=== PATIENT | female | born 2000 | race Asian ===

== ENCOUNTER 2023-09-16 21:48 | Emergency (ER) | payer OTHER, SELFPAY ==
[2023-09-16 21:50] VITALS: BP 108/75
--- NOTE | 2023-09-16 22:33 | ED.MUSCINJ ---
HPI-Injury
General
Chief Complaint: Musculo-Skeletal Complaint
Source: patient
Exam Limitations: none
Time Seen by Provider: 09/16/23 22:21
Nursing documentation reviewed up to this point in time: agreed with
History of Present Illness-Injury
Is this injury a work related problem?: No
Is pt an associate of [facility]?: No
Initial Injury comments:
Rolled ankle while gardening COmplains of pain to right lat ankle. Injury occurred today.
Past History
Past History
ED Past Medical History: None
ED Past Surgical History: None
Social History
Tobacco: Non-smoker
Alcohol: None
Drug: None
Personal: Other (engaged)
Living: with family
Review of Systems
Review of Systems
Allergies reviewed?: Yes
All Other Systems: ROS reviewed and negative except as documented in HPI and ROS
Constitutional: Reports no symptoms
Musculoskeletal: Reports joint pain (pain to right lat ankle)
Skin: Reports no symptoms
Neurological: Reports no symptoms
Psychiatric: Reports no symptoms
Musculoskeletal Injury Exam
Musculoskeletal Injury Exam
Right Lateral Ankle:
Pain with Movement?: Moderate
Tender to palpation?: Moderate
Soft tissue swelling?: Mild
External deformity and angulation?: None
Joint effusion?: None
Contusion?: None
Strain- Sprain- Tear (Connective tissue injury)?: Moderate
Crepitus with movement?: No
Joint instability?: No
Malalignment/deformity?: No
Range of motion: Limited
Distal skin color and temperature: normal-warm & good color
Capillary Refill: normal
Normal distal neurovascular exam?: Yes
Peripheral Pulses: posterior tibial (right): 3+ and dorsalis pedis (right): 3+
Phy Exam
General Physical Exam
General Presentation: well appearing and no apparent distress
General age: appears stated age
General Skin: warm and dry
General Habitus: normal
General Mental: alert
Musculoskeletal Exam
Musculoskeletal Exam: neuro vasc intact and other (Achilles intact. No tenderness base pf 5th, proximal tib/fib)
Skin Exam
Skin Exam: normal color, warm/dry and no rash
Psychiatric Exam
Psychiatric Exam: normal mood/affect
Injury Course
Orders/Labs/Results
Orders:
Orders
09/16/23 21:53
Ankle, Right 3 view CR [CR Ankle - Right Min 3 Views *] Urgent
Comment:
Reason For Exam: right ankle injury, pain and swelling
09/16/23 22:28
Ortho Boot Right- Treatment ONCE
Short or tall?: Tall
*Critical Care Note
Total Time (30-74mins, 75-104mins- exclusive of procedures): Not Applicable
ED Attending Note
-
Portions of this chart may have been created with voice recognition software.� Occasional wrong word or��sound alike� substitutions may have occurred due to the inherent limitations of voice recognition software.
Discharge Plan
Departure
Patient Disposition: Home (Routine Discharge)
Date of Disposition: 09/16/23
Time of Disposition: 22:31
Patient with high blood pressure during this ER visit?: No
Condition: Good
Covid-19: Not Applicable
Discharge Problem:
Ankle sprain
Instructions: Ibuprofen, Using Cold for Pain, Ankle Sprain ED
Prescriptions:
No Action
bupropion HCl 300 mg Tablet Extended Release 24 Hr
300 mg PO DAILY
zinc 50 mg Capsule
50 mg PO DAILY
Referrals:
Lawrence Gómez MD [Active] - (Follow up if your symptoms do not improve over the next week)
Discharge Date and Time
Print Language: NEPALI
== END 2023-09-16 23:18 | disposition home or self-care (01) ==
LOC: EMR 21:48
PROVIDERS: EMERGENCY PHYSICIAN Emergency Medicine; FAMILY PHYSICIAN Internal Medicine
DX: S93.401A Sprain of unspecified ligament of right ankle, initial encounter (principal); X58.XXXA Exposure to other specified factors, initial encounter
CPT/HCPCS: 99283; 73610

== ENCOUNTER 2023-12-11 18:57 | Emergency (ER) | payer OTHER, SELFPAY ==
[2023-12-11 18:59] VITALS: BP 128/71
--- NOTE | 2023-12-11 19:38 | ED.GENMED ---
History of Present Illness
General
Chief Complaint: Abdominal Symptoms
Source: patient
Exam Limitations: none
Time Seen by Provider: 12/11/23 19:25
History of Present Illness
History of Present Illness:
23-year-old female with relatively sudden onset of upper abdominal pain nausea vomiting and diarrhea. Started early this afternoon. No precipitating event. No other unusual food ingestion. No travel history. No one else is ill at home. She
does have a history of ulcerative colitis diagnosed 2 years ago. However she is on no chronic medication for this. She has had no issues between then and now. Mostly complaining of nausea but some of upper abdominal pain. No blood or mucus in
the stool
Past History
Past History
ED Past Medical History: Other (Ulcerative colitis)
ED Past Surgical History: None and Other (Septoplasty. Right eye surgery)
Social History
Tobacco: Non-smoker
Alcohol: None
Drug: None
Personal: Other (engaged)
Living: with family
Review of Systems
Review of Systems
All Other Systems: Not applicable
Constitutional: Denies fever or chills
ABD/GI: Denies bloody stools or black stools
: Reports no symptoms
Phy Exam
Physical Exam
Physical Exam:
GENERAL: Alert and oriented in no apparent distress
EYE: Orbits normal.
NECK: Supple
CARDIAC: Borderline tachycardia
LUNGS: Clear breath sounds,normal
ABDOMEN: Soft, mild epigastric tenderness. No rebound or guarding no mass or hernia
NEUROLOGICAL: Alert and oriented , grossly non-focal
SKIN: Warm and dry, no rash or lesion, no discoloration, skin intact.
MUSCULOSKELETAL: No edema,no deformity.Good color
PSYCH: Normal and appropriate interaction.
Course
Orders/Labs/Results
Orders:
Orders
12/11/23 19:37
IV Insert/Care/Rem.- Treatment PRN
0.9% Sodium Chloride 1000 ml [Nss] 1,000 ml IV BOLUS
Ondansetron Injectable [Zofran] 4 mg IV NOW STA
Pantoprazole [Protonix IV] 40 mg IV NOW STA
Test Result ONCE
US Abdomen Complete/Upper Urgent
Comment:
Reason For Exam: Upper abdominal pain/diarrhea
12/11/23 20:01
Complete Blood Count/With Diff Urgent
Comprehensive Metabolic Panel Urgent
HCG, Serum Qualitative Screen Urgent
Lipase Urgent
12/11/23 20:49
STOOL [C difficile Antigen & Toxins] Urgent
TRACEY Source: Feces/Stool
Specimen Description:
Date Specimen was Collected: 12/11/23
Time Specimen was Collected: 20:47
Stool Culture Urgent
TRACEY Source: Feces/Stool
Specimen Description:
Date Specimen was Collected: 12/11/23
Time Specimen was Collected: 20:47
Abnormal Lab Results
12/11/23
20:01
WBC 11.9 H 10^3/uL
(4.8-10.8)
Absolute Neuts (auto) 9.7 H 10^3/uL
(1.4-6.5)
Absolute Monos (auto) 0.7 H 10^3/uL
(0.1-0.6)
Neutrophils % 81.7 H %
(42.2-75.2)
Lymphocytes % 10.4 L %
(20.5-51.1)
12/11/23 20:01
12/11/23 20:01
Vital Signs
Initial and Last Documented VS:
Initial Vital Signs
Temp Pulse Resp BP Pulse Ox
98.1 F 115 18 128/71 97
12/11/23 18:59 12/11/23 18:59 12/11/23 18:59 12/11/23 18:59 12/11/23 18:59
Last Documented Vital Signs
Temp Pulse Resp BP Pulse Ox
98.1 F 115 18 128/71 97
12/11/23 18:59 12/11/23 18:59 12/11/23 18:59 12/11/23 18:59 12/11/23 18:59
MDM/Problems Addressed
Differential Diagnosis Includes:
Patient describing mostly colitis like symptoms. Relatively sudden onset. Differential would include infectious colitis or ulcerative colitis. Also consider biliary colic/gastroenteritis/viral syndrome
*Radiology
Radiology exam reviewed: radiology read reviewed (Fatty liver)
*Pulse Oximetry
Patient hypoxic: no
*Critical Care Note
Total Time (30-74mins, 75-104mins- exclusive of procedures): Not Applicable
Update Note
Update Note:
Patient tolerated p.o. well. Discussed approach at length. Discussed and offered CT although clinically does not have a surgical abdomen. Clinically appears very comfortable. Symptoms are all upper abdomen. Most consistent with a
gastroenteritis or colitis. Patient is comfortable with watching closely as an outpatient.
ED Attending Note
-
Portions of this chart may have been created with voice recognition software.� Occasional wrong word or��sound alike� substitutions may have occurred due to the inherent limitations of voice recognition software.
Discharge Plan
Departure
Patient Disposition: Home (Routine Discharge)
Date of Disposition: 12/11/23
Time of Disposition: 22:06
Patient with high blood pressure during this ER visit?: Yes
Discharge Problem:
Colitis/gastroenteritis
Instructions: Nausea and Vomiting, Adult (DC), Colitis (DC), Diarrhea, Adult ED, Abdominal Pain, BLOOD PRESSURE
Prescriptions:
New
ondansetron 4 mg tablet,disintegrating
4 mg PO TID PRN (Reason: nausea and vomiting) 5 Days Qty: 10 0RF
No Action
bupropion HCl 300 mg Tablet Extended Release 24 Hr
300 mg PO DAILY
zinc 50 mg Capsule
50 mg PO DAILY
Referrals:
Joseluis Velasquez MD [Family Provider] - Follow up in 2-3 days
Activity Restrictions/Additional Instructions:
Your prescription was sent to your pharmacy
Stay well-hydrated
The stool culture should be back in 2 to 3 days
As we discussed, get rechecked if symptoms have not resolved in the next few days or sooner if symptoms progress
Interventions
Interventions:
*Risk Screen - Suicide Last Done: 12/11/23 19:03
*General Assessment Last Done: 12/11/23 18:59
*Neglect/Abuse Screening Last Done: 12/11/23 18:59
ED- Fall Risk Assessment Last Done: 12/11/23 18:59
*ED COVID-19 Vaccine History Last Done: 12/11/23 19:04
Discharge Date and Time
Print Language: NIGERIAN
[2023-12-11] MEDS: PROTONIX IV 40 MG IV (20:02)
[2023-12-11] MEDS: ZOFRAN 4 MG IV (20:02)
[2023-12-11] MEDS: NSS 1000 IV (20:02)
[2023-12-11 20:18] LABS: % Basophils 0.2 % (0-2); % Eosinophils 1.3 % (0-6); % Immature Granulocytes 0.3 % (0-0.5); % Lymphocytes 10.4 % (20.5-51.1); % Monocytes 6.1 % (1.7-9.3); % Neutrophils 81.7 % (42.2-75.2); Absolute Eosinophils 0.2 10^3/uL (0-0.7); Absolute Lymphocytes 1.2 10^3/uL (1.2-3.4); Absolute Monocytes 0.7 10^3/uL (0.1-0.6); Absolute Neutrophils 9.7 10^3/uL (1.4-6.5); Hematocrit 41.1 % (37.0-47.0); Hemoglobin 14.4 g/dL (12.0-16.0); Mean Corpuscular Hgb 28.5 pg (27.0-31.0); Mean Corpuscular Volume 81.2 fL (81.0-99.0); Mean Platelet Volume 9.6 fL (7.4-10.4); Nucleated Red Blood Cells % 0 %; Platelet Count 306 10^3/uL (130-400); Red Blood Cell Count 5.06 10^6/uL (4.20-5.40); Red Cell Dist. Width 12.7 % (11.5-14.5); White Blood Cell Count 11.9 10^3/uL (4.8-10.8)
[2023-12-11 20:32] LABS: HCG, Serum Qualitative Screen Negative
[2023-12-11 20:35] LABS: ALT (SGPT) 16 U/L (0-35); AST (SGOT) 21 U/L (14-36); Albumin 4.9 g/dl (3.5-5.0); Alkaline Phosphatase 57 U/L (38-126); Blood Urea Nitrogen 15 mg/dl (7-17); Calcium 9.6 mg/dl (8.4-10.2); Carbon Dioxide 23 mmol/L (22-30); Chloride 101 mmol/L (98-107); Glucose 88 mg/dl (70-99); Lipase 81 U/L (23-300); Potassium 4.5 mmol/L (3.5-5.1); Sodium 138 mmol/L (135-145); Total Bilirubin 0.5 mg/dl (0.2-1.3); Total Protein 7.7 g/dl (6.3-8.2); eGFR > 60.00
[2023-12-11 22:33] VITALS: BP 126/78
== END 2023-12-11 22:37 | disposition home or self-care (01) ==
LOC: EMR 18:57
PROVIDERS: EMERGENCY PHYSICIAN Emergency Medicine; FAMILY PHYSICIAN Internal Medicine
DX: K52.9 Noninfective gastroenteritis and colitis, unspecified (principal); Z87.19 Personal history of other diseases of the digestive system
CPT/HCPCS: 99284; 96374; 96375; 96361; 76700; 80053; 83690; 84703; 85025; 87045; 87046; 87324; 87427; 87449

== ENCOUNTER 2024-01-28 04:14 | Emergency (ER) | payer OTHER, SELFPAY ==
[2024-01-28 04:19] VITALS: BP 107/57
[2024-01-28 05:20] LABS: % Basophils 0.1 % (0-2); % Eosinophils 2.4 % (0-6); % Immature Granulocytes 0.2 % (0-0.5); % Monocytes 7.7 % (1.7-9.3); % Neutrophils 72.6 % (42.2-75.2); Absolute Eosinophils 0.2 10^3/uL (0-0.7); Absolute Lymphocytes 1.4 10^3/uL (1.2-3.4); Absolute Monocytes 0.7 10^3/uL (0.1-0.6); Absolute Neutrophils 6.1 10^3/uL (1.4-6.5); Hematocrit 35.4 % (37.0-47.0); Hemoglobin 12.6 g/dL (12.0-16.0); Mean Corp Hgb Conc. 35.6 g/dL (33.0-37.0); Mean Corpuscular Hgb 29.9 pg (27.0-31.0); Mean Corpuscular Volume 83.9 fL (81.0-99.0); Nucleated Red Blood Cells % 0 %; Platelet Count 296 10^3/uL (130-400); Red Blood Cell Count 4.22 10^6/uL (4.20-5.40); Red Cell Dist. Width 11.9 % (11.5-14.5); White Blood Cell Count 8.4 10^3/uL (4.8-10.8)
[2024-01-28 05:39] LABS: HCG, Serum Qualitative Screen Negative
[2024-01-28 05:46] VITALS: BP 111/94
[2024-01-28 05:47] LABS: ALT (SGPT) 16 U/L (0-35); AST (SGOT) 23 U/L (14-36); Albumin 4.5 g/dl (3.5-5.0); Alkaline Phosphatase 54 U/L (38-126); Blood Urea Nitrogen 15 mg/dl (7-17); Calcium 9.4 mg/dl (8.4-10.2); Carbon Dioxide 22 mmol/L (22-30); Chloride 103 mmol/L (98-107); Glucose 104 mg/dl (70-99); Lipase 74 U/L (23-300); Potassium 3.6 mmol/L (3.5-5.1); Sodium 137 mmol/L (135-145); Total Bilirubin 0.9 mg/dl (0.2-1.3); Total Protein 7.3 g/dl (6.3-8.2); eGFR > 60.00
[2024-01-28 06:01] VITALS: BP 119/73
[2024-01-28] MEDS: ZOFRAN 4 MG IV (06:08)
--- NOTE | 2024-01-28 06:56 | ED.GENMED ---
History of Present Illness
<Renetta Martinez MD, Resident - Last Filed: 01/28/24 11:09>
General
Chief Complaint: Abdominal Symptoms
Time Seen by Provider: 01/28/24 06:15
History of Present Illness
History of Present Illness:
23 y/o female with no significant pmhx presenting to the ED with nausea, vomiting, and diarrhea since yesterday. Pt notes her symptoms started around 5pm yesterday without any precipitating events. Pt notes abdominal pain predominantly in the lower
abdominal area (left greater than right). Pt has had 6 episodes of non-bloody vomiting and ~11 loose watery bowel movements in the past 24 hrs. Notes bright red blood mixed with her stools which is new. Pt has had several episodes of similar
symptoms since 2022. Notes prior hospitalization in 2022 for which she underwent colonoscopy and was diagnosed with 'acute colitis'. Pt takes no medications other than Wevogy for weight loss which was upped this past to 1 mg. Denies fever,
chills. Pt states her fiance is having flulike symptoms at home. No recent travel. No recent antibiotic use. Was seen here for similar symptoms in November 2023.
Past History
<Renetta Martinez MD, Resident - Last Filed: 01/28/24 11:09>
Past History
ED Past Medical History: Other (Colitis)
ED Past Surgical History: None and Other (Septoplasty. Right eye surgery)
Social History
Tobacco: Non-smoker
Alcohol: None
Drug: None
Personal: Other (engaged)
Living: with family
Review of Systems
<Renetta Martinez MD, Resident - Last Filed: 01/28/24 11:09>
Review of Systems
Constitutional: Reports fatigue
EENT: Reports no symptoms
Respiratory: Reports cough
Cardiac: Reports no symptoms
ABD/GI: Reports abdominal pain, nausea, vomiting, diarrhea and bloody stools
: Reports no symptoms
Musculoskeletal: Reports no symptoms
Skin: Reports no symptoms
Neurological: Reports no symptoms
Endocrine: Reports no symptoms
Hematologic/Lymphatic: Reports no symptoms
Psychiatric: Reports no symptoms
Phy Exam
<Renetta Martinez MD, Resident - Last Filed: 01/28/24 11:09>
Physical Exam
Physical Exam:
GENERAL: Alert, in no apparent distress
EYE: pupils equal and reactive
NECK: Supple, no significant adenopathy.
ENT: o/p clr, mmm.
CARDIAC: Regular rate and rhythm.
LUNGS: Clear breath sounds bilaterally, no acute respiratory distress, no wheezes/rales/rhonchi
ABDOMEN: Soft, mild LUQ tenderness, no r/g, no cvat
NEUROLOGICAL: Alert and oriented, no focal neuro deficits
SKIN: Warm and dry, skin intact.
MUSCULOSKELETAL: No edema, well perfused.
PSYCH: Normal and appropriate interaction.
Course
<Renetta Martinez MD, Resident - Last Filed: 01/28/24 11:09>
Orders/Labs/Results
Orders:
Orders
01/28/24 04:33
IV Insert/Care/Rem.- Treatment PRN
Test Result ONCE
01/28/24 05:02
C-Reactive Protein Urgent
Comment: ADD ON
Complete Blood Count/With Diff Urgent
Comprehensive Metabolic Panel Urgent
HCG, Serum Qualitative Screen Urgent
Comment: Notify provider if positive test present
Lipase Urgent
01/28/24 06:07
Ondansetron Injectable [Zofran] 4 mg .ROUTE .STK-MED ONE
01/28/24 06:08
Ondansetron Injectable [Zofran] 4 mg IV NOW STA
01/28/24 06:28
Diphenhydramine [Benadryl] 50 mg IV NOW STA
Hydrocortisone Sod Succinate [Solu-Cortef] 200 mg IV NOW STA
01/28/24 06:54
Iohexol [Omnipaque] See Protocol PO NOW STA
01/28/24 06:55
CT Abd/pel W Iv And Oral Contr Urgent
Comment:
Reason For Exam: abd pain/bloody diarrhea
01/28/24 06:56
0.9% Sodium Chloride 1000 ml [Nss] 1,000 ml IV BOLUS
01/28/24 07:09
STOOL [C difficile Antigen & Toxins] Urgent
TRACEY Source: Feces/Stool
Specimen Description:
Date Specimen was Collected: 01/28/24
Time Specimen was Collected: 07:06
Stool Culture Urgent
TRACEY Source: Feces/Stool
Specimen Description:
Date Specimen was Collected: 01/28/24
Time Specimen was Collected: 07:06
01/28/24 07:14
Ketorolac [Toradol] 15 mg IV NOW STA
01/28/24 12:34
Add On- LAB Urgent
Tests Added?: ESR, CRP
Abnormal Lab Results
01/28/24
05:02
Hct 35.4 L %
(37.0-47.0)
Absolute Monos (auto) 0.7 H 10^3/uL
(0.1-0.6)
Lymphocytes % 17.0 L %
(20.5-51.1)
Glucose 104 H mg/dl
(70-99)
01/28/24 05:02
01/28/24 05:02
Vital Signs
Initial and Last Documented VS:
Initial Vital Signs
Temp Pulse BP Pulse Ox
98.0 F 99 107/57 99
01/28/24 04:19 01/28/24 04:19 01/28/24 04:19 01/28/24 04:19
Last Documented Vital Signs
Temp Pulse Resp BP Pulse Ox
98.0 F 68 18 103/64 99
01/28/24 11:42 01/28/24 11:42 01/28/24 11:42 01/28/24 11:42 01/28/24 11:42
<Dago Benton MD - Last Filed: 01/29/24 08:48>
Orders/Labs/Results
Orders:
Orders
01/28/24 04:33
IV Insert/Care/Rem.- Treatment PRN
Test Result ONCE
01/28/24 05:02
C-Reactive Protein Urgent
Comment: ADD ON
Complete Blood Count/With Diff Urgent
Comprehensive Metabolic Panel Urgent
HCG, Serum Qualitative Screen Urgent
Comment: Notify provider if positive test present
Lipase Urgent
01/28/24 06:07
Ondansetron Injectable [Zofran] 4 mg .ROUTE .STK-MED ONE
01/28/24 06:08
Ondansetron Injectable [Zofran] 4 mg IV NOW STA
01/28/24 06:28
Diphenhydramine [Benadryl] 50 mg IV NOW STA
Hydrocortisone Sod Succinate [Solu-Cortef] 200 mg IV NOW STA
01/28/24 06:54
Iohexol [Omnipaque] See Protocol PO NOW STA
01/28/24 06:55
CT Abd/pel W Iv And Oral Contr Urgent
Comment:
Reason For Exam: abd pain/bloody diarrhea
01/28/24 06:56
0.9% Sodium Chloride 1000 ml [Nss] 1,000 ml IV BOLUS
01/28/24 07:09
STOOL [C difficile Antigen & Toxins] Urgent
TRACEY Source: Feces/Stool
Specimen Description:
Date Specimen was Collected: 01/28/24
Time Specimen was Collected: 07:06
Stool Culture Urgent
TRACEY Source: Feces/Stool
Specimen Description:
Date Specimen was Collected: 01/28/24
Time Specimen was Collected: 07:06
01/28/24 07:14
Ketorolac [Toradol] 15 mg IV NOW STA
01/28/24 12:34
Add On- LAB Urgent
Tests Added?: ESR, CRP
Abnormal Lab Results
01/28/24
05:02
Hct 35.4 L %
(37.0-47.0)
Absolute Monos (auto) 0.7 H 10^3/uL
(0.1-0.6)
Lymphocytes % 17.0 L %
(20.5-51.1)
Glucose 104 H mg/dl
(70-99)
01/28/24 05:02
01/28/24 05:02
Vital Signs
Initial and Last Documented VS:
Initial Vital Signs
Temp Pulse BP Pulse Ox
98.0 F 99 107/57 99
01/28/24 04:19 01/28/24 04:19 01/28/24 04:19 01/28/24 04:19
Last Documented Vital Signs
Temp Pulse Resp BP Pulse Ox
98.0 F 68 18 103/64 99
01/28/24 11:42 01/28/24 11:42 01/28/24 11:42 01/28/24 11:42 01/28/24 11:42
<Renetta Martinez MD, Resident - Last Filed: 01/28/24 11:09>
MDM/Problems Addressed
Differential Diagnosis Includes:
Colitis (infectious vs inflammatory)
Pancreatitis
EP
MDM/Problems Addressed:
- CBC, CMP
- Stool culture, Stool C Diff
- Lipase
- IVF
- Zofran
- Abdomen Pelvis CT scan w/ IV and oral contrast
<Renetta Martinez MD, Resident - Last Filed: 01/28/24 11:09>
*Critical Care Note
Total Time (30-74mins, 75-104mins- exclusive of procedures): Not Applicable
ED Attending Note
<Renetta Martinez MD, Resident - Last Filed: 01/28/24 11:09>
-
Portions of this chart may have been created with voice recognition software.� Occasional wrong word or��sound alike� substitutions may have occurred due to the inherent limitations of voice recognition software.
<Dago Benton MD - Last Filed: 01/29/24 08:48>
ED Attending Note
Patient seen and examined by attending physician: Yes
I performed a history and physical exam of patient and discussed management with resident, I reviewed resident's note and agree with documented findings and plan of care.: Yes
ED Attending Note:
23-year-old female complaining of abdominal pain diarrhea bloody stools. Symptoms progressed over the last day. Has had similar episodes in the past. Last episode was in November. Has not followed up with her GI doctor since then. She has had a
colonoscopy in the past and a capsule scope done. No diagnosis has been found. No recent antibiotics no travel history. No one else ill at home.0
GENERAL: Alert and oriented in no apparent distress
EYE: Orbits normal.
NECK: Supple
CARDIAC: Regular rate and rhythm without any obvious murmurs.
LUNGS: Clear breath sounds,normal
ABDOMEN: Soft, bowel sounds present. No obvious tenderness or localized tenderness although mild vague discomfort upper quadrant and left lower quadrant
NEUROLOGICAL: Alert and oriented , grossly non-focal
SKIN: Warm and dry, no rash or lesion, no discoloration, skin intact.
MUSCULOSKELETAL: No edema,no deformity.Good color
PSYCH: Normal and appropriate interaction.
Patient is describing recurrent colitis like symptoms. Doubt infectious given the frequent episode she has had in the past. Stool culture is pending however. Nothing to support C. difficile colitis. Labs are stable. Will get a CT scan.
Probable ulcerative colitis by CT scan. Medically stable. Discussed with the patient inpatient versus outpatient management. We also discussed this with GI. They can see her tomorrow in the office. No acute management for the ulcerative colitis
here in the ER. Patient is comfortable with close outpatient follow-up tomorrow
Discharge Plan
Departure
Patient Disposition: Home (Routine Discharge)
Date of Disposition: 01/28/24
Time of Disposition: 11:08
Patient with high blood pressure during this ER visit?: No
Condition: Fair
Discharge Problem:
Colitis
Instructions: Colitis, Dehydration, Adult (DC), [place] Diet, Nausea and Vomiting, Adult (DC)
Prescriptions:
New
loperamide [Anti-Diarrheal (loperamide)] 2 mg capsule
2 mg PO Q6H PRN (Reason: loose stool) Qty: 4 0RF
acetaminophen [Tylenol] 325 mg tablet
325 mg PO ONCE PRN (Reason: Pain) Qty: 7 0RF
No Action
bupropion HCl 300 mg Tablet Extended Release 24 Hr
300 mg PO DAILY
zinc 50 mg Capsule
50 mg PO DAILY
ondansetron 4 mg tablet,disintegrating
4 mg PO TID PRN (Reason: nausea and vomiting) 5 Days Qty: 10 0RF
Referrals:
Ashley De Anda, [Active] - Tomorrow
Joseluis Velasquez MD [Family Provider] -
Activity Restrictions/Additional Instructions:
You were seen here today in the emergency department for abdominal symptoms. Your CT scan showed inflammation in your large bowel. You have an appointment scheduled with a gastroenterology doctor, Dr. Ashley De Anda, tomorrow at 3.30pm at their
office. You can take Tylenol for pain as needed and loperamide for diarrhea after a bowel movement. Please return to the emergency department for worsening symptoms, fever, severe abdominal pain, or any symptoms concerning to you. Thank you for
choosing [facility].
Interventions
Interventions:
*Risk Screen - Suicide Last Done: 01/28/24 05:30
*General Assessment Last Done: 01/28/24 05:30
*Neglect/Abuse Screening Last Done: 01/28/24 05:30
ED- Fall Risk Assessment Last Done: 01/28/24 05:31
*ED COVID-19 Vaccine History Last Done: 01/28/24 05:30
*Nursing Disposition Last Done: 01/28/24 11:42
UO-Ffpvas-Ktwruvlpek Assessment Last Done: 01/28/24 05:31
ED- Cardiac Assessment Last Done: 01/28/24 05:31
ED- Neurological Assessment Last Done: 01/28/24 05:31
ED- Pulmonary Assessment Last Done: 01/28/24 05:31
Discharge Date and Time
Discharge Date/Time: 01/28/24 11:43
Print Language: MALDIVIAN
[2024-01-28] MEDS: OMNIPAQUE 50 ML PO (07:01)
[2024-01-28] MEDS: NSS 1000 IV (07:02)
[2024-01-28 07:05] VITALS: BP 109/74
[2024-01-28 07:07] VITALS: BP 109/74; BMI 28.2
[2024-01-28] MEDS: TORADOL 15 MG IV (07:19)
--- NOTE | 2024-01-28 11:41 | EDRN ---
Discharge instructions given to patient by . Verbalized understanding. [facility]
[2024-01-28 11:42] VITALS: BP 103/64
== END 2024-01-28 11:43 | disposition home or self-care (01) ==
LOC: EMR 04:14
PROVIDERS: Student in an Organized Health Care Education/Training Program; EMERGENCY PHYSICIAN Emergency Medicine; FAMILY PHYSICIAN Internal Medicine
DX: K52.9 Noninfective gastroenteritis and colitis, unspecified (principal)
CPT/HCPCS: 99285; 96374; 96375 ×3; 96361; 74177; 80053; 83690; 84703; 85025; 86140; 87045; 87046; 87324; 87427; 87449; Q9967

== ENCOUNTER → 2024-02-08 06:25 | Day surgery (SDC) | payer OTHER, SELFPAY | LOC: GI 06:25 | PROVIDERS: ATTENDING PHYSICIAN Internal Medicine | DX: R93.3 Abnormal findings on diagnostic imaging of other parts of digestive tract (principal); K63.89 Other specified diseases of intestine | CPT/HCPCS: 45380; 88305; 88341; 88342 ==

== ENCOUNTER 2024-10-23 17:30 | Emergency (ER) | payer OTHER, SELFPAY ==
[2024-10-23 17:31] VITALS: BMI 29.3
[2024-10-23 17:44] VITALS: BP 120/73
[2024-10-23 18:03] LABS: Hematocrit 37.5 % (37.0-47.0); Hemoglobin 13.0 g/dL (12.0-16.0); Mean Corp Hgb Conc. 34.7 g/dL (33.0-37.0); Mean Corpuscular Volume 83.5 fL (81.0-99.0); Nucleated Red Blood Cells % 0 %; Platelet Count 324 10^3/uL (130-400); Red Cell Dist. Width 12.4 % (11.5-14.5)
[2024-10-23 18:24] LABS: HCG, Serum Qualitative Screen Negative
[2024-10-23 18:42] LABS: ALT (SGPT) 27 U/L (0-35); AST (SGOT) 29 U/L (14-36); Albumin 4.7 g/dl (3.5-5.0); Alkaline Phosphatase 56 U/L (38-126); Blood Urea Nitrogen 8 mg/dl (7-17); Calcium 9.5 mg/dl (8.4-10.2); Carbon Dioxide 23 mmol/L (22-30); Chloride 105 mmol/L (98-107); Glucose 80 mg/dl (70-99); Lipase 65 U/L (23-300); Potassium 3.8 mmol/L (3.5-5.1); Sodium 135 mmol/L (135-145); Total Protein 7.6 g/dl (6.3-8.2); eGFR > 60.00
--- NOTE | 2024-10-23 19:09 | ED.GENMED ---
History of Present Illness
General
Chief Complaint: Abdominal Symptoms
Source: patient
Time Seen by Provider: 10/23/24 18:56
History of Present Illness
History of Present Illness:
24-year-old female with a past medical history of unspecified abdominal pain presenting to the ER for evaluation of exacerbation of this abdominal pain which started late last night into early this morning, took a dose of her Pepto-Bismol which did
not help very much, has subsequently vomited twice today prompting her to come to the ER. Pain is somewhat similar to previous for which she is followed up with GI and has had colonoscopy and endoscopy without any findings. Patient states that
today symptoms are not as severe as she has had in the past but she has been having difficulty eating or drinking anything today which is what prompted her to come in. She denies any fevers, chills, rigors, bowel changes other than some mild
constipation although this is not infrequent for her, urinary symptoms or any other symptoms at this time. Patient states that she does have scripts for pantoprazole and is told to take this when she gets these kind of symptoms but did not take
this today.
Past History
Past History
ED Past Medical History: Other (Colitis)
ED Past Surgical History: None and Other (Septoplasty. Right eye surgery)
Social History
Tobacco: Non-smoker
Alcohol: None
Drug: None
Personal: Other (engaged)
Living: with family
Review of Systems
Review of Systems
All Other Systems: ROS reviewed and negative except as documented in HPI and ROS
Phy Exam
Physical Exam
Physical Exam:
GENERAL: Alert , in no apparent distress
EYE: clear conjunctiva b/l
HEAD: NCAT
ENT: mmm.
CARDIAC: Regular rate and rhythm .
LUNGS: Clear breath sounds bilaterally, no acute respiratory distress, no wheezes/rales/rhonchi
ABDOMEN: Soft, without focal tenderness, no r/g, no cvat
NEUROLOGICAL: Alert and oriented
SKIN: Warm and dry, skin intact.
MUSCULOSKELETAL: well perfused.
PSYCH: Normal and appropriate interaction.
Scores
Heart Failure Risk
Heart Failure Risk Score: Not Applicable
Heart Score for Chest Pain Patients
STEMI patient?: Not applicable
Withdrawal Assessment of Alcohol
Withdrawal Assessment Completed?: Not applicable
Course
Orders/Labs/Results
Orders:
Orders
10/23/24 17:48
Test Result ONCE
10/23/24 17:55
Complete Blood Count/With Diff Urgent
Comprehensive Metabolic Panel Urgent
HCG, Serum Qualitative Screen Urgent
Comment: Notify provider if positive test present
Lipase Urgent
10/23/24 19:07
0.9% Sodium Chloride 1000 ml [Nss] 1,000 ml IV BOLUS
Ketorolac [Toradol] 30 mg IV NOW STA
Mag Hydrox/Al Hydrox/Simeth [Maalox] 30 ml Phenobarb/Hyoscy/Atropine/Scop [] 10 ml Viscous Lidocaine 2% [Xylocaine Viscous Cup] 10 ml PO NOW
10/23/24 19:11
Mag Hydrox/Al Hydrox/Simeth [Maalox] 30 ml .ROUTE .STK-MED ONE
Phenobarb/Hyoscy/Atropine/Scop [] 10 ml .ROUTE .STK-MED ONE
Viscous Lidocaine 2% [Xylocaine Viscous Cup] 15 ml .ROUTE .STK-MED ONE
Abnormal Lab Results
10/23/24
17:55
Absolute Monos (auto) 0.8 H 10^3/uL
(0.1-0.6)
Monocytes % 9.8 H %
(1.7-9.3)
10/23/24 17:55
10/23/24 17:55
Vital Signs
Initial and Last Documented VS:
Initial Vital Signs
Temp Pulse Resp BP Pulse Ox
98.5 F 94 16 120/73 99
10/23/24 17:44 10/23/24 17:44 10/23/24 17:44 10/23/24 17:44 10/23/24 17:44
Last Documented Vital Signs
Temp Pulse Resp BP Pulse Ox
98.5 F 87 16 115/74 99
10/23/24 17:44 10/23/24 19:57 10/23/24 17:44 10/23/24 20:00 10/23/24 20:30
MDM/Problems Addressed
Differential Diagnosis Includes:
GERD
Gastritis
IBS
Peptic ulcer disease
Pancreatitis
Dehydration
Electrolyte imbalance
MDM/Problems Addressed:
24-year-old female presenting to the ER for evaluation of what appears to be an exacerbation of chronic GI problems without any specified diagnoses. Patient follows with GI here. Has had both colonoscopy and endoscopy performed without any
specific etiologies found. Patient admits while she does not feel well today she has had worsening symptoms at times due to these GI episodes. Labs were initiated on arrival and are reassuring with no leukocytosis and no abnormalities within her
chemistry and a negative test. Will trial symptomatic relief with Toradol, GI cocktail and fluids. Reassessment 5
Chronic conditions affecting care: Other (Chronic abdominal pain)
*Pulse Oximetry
SaO2: 99
Oxygen Mode of Delivery: Room air
Patient hypoxic: no
*Critical Care Note
Total Time (30-74mins, 75-104mins- exclusive of procedures): Not Applicable
Data Reviewed
Review of Other/Old Records Reveals: Records and Testing
Patient Management
Escalation/DeEscalation of care consider admission/obs:
Patient with significant improvement following medications. She was able to tolerate p.o. here without any further vomiting. Advised outpatient follow-up as needed. Stable for discharge home and aware of return precautions.
ED Attending Note
-
Portions of this chart may have been created with voice recognition software.� Occasional wrong word or��sound alike� substitutions may have occurred due to the inherent limitations of voice recognition software.
Discharge Plan
Departure
Patient Disposition: Home (Routine Discharge)
Date of Disposition: 10/23/24
Time of Disposition: 20:37
Patient with high blood pressure during this ER visit?: No
Discharge Problem:
Abdominal pain
Instructions: Abdominal Pain
Prescriptions:
New
ondansetron 4 mg tablet,disintegrating
4 mg PO TIDPRN PRN (Reason: nausea/vomiting) Qty: 8 0RF
alum-mag hydroxide-simeth [Maalox Advanced] 200-200-20 mg/5 mL suspension
10 ml PO QID PRN (Reason: indigestion) Qty: 1000 0RF
No Action
bupropion HCl 300 mg Tablet Extended Release 24 Hr
300 mg PO DAILY
zinc 50 mg Capsule
50 mg PO DAILY
ondansetron 4 mg tablet,disintegrating
4 mg PO TID PRN (Reason: nausea and vomiting) 5 Days Qty: 10 0RF
loperamide [Anti-Diarrheal (loperamide)] 2 mg capsule
2 mg PO Q6H PRN (Reason: loose stool) Qty: 4 0RF
acetaminophen [Tylenol] 325 mg tablet
325 mg PO ONCE PRN (Reason: Pain) Qty: 7 0RF
Referrals:
Joseluis Velasquez MD [Family Provider, Internal Medicine]
Stand Alone Forms: Back to School, Return to Work
Interventions
Interventions:
*Risk Screen - Suicide Last Done: 10/23/24 17:44
*Neglect/Abuse Screening Last Done: 10/23/24 17:44
*Nursing Disposition Last Done: 10/23/24 21:00
XU-[id number] Assessment Last Done: 10/23/24 20:56
Discharge Date and Time
Discharge Date/Time: 10/23/24 21:01
Print Language: SAMI
[2024-10-23] MEDS: MAALOX 45 PO (19:24)
[2024-10-23] MEDS: TORADOL 30 MG IV (19:25)
[2024-10-23] MEDS: NSS 1000 IV (19:25)
[2024-10-23 19:58] VITALS: BP 116/78
[2024-10-23 20:00] VITALS: BP 115/74
== END 2024-10-23 21:01 | disposition home or self-care (01) ==
LOC: EMR 17:30
PROVIDERS: Emergency Medicine; EMERGENCY PHYSICIAN Student in an Organized Health Care Education/Training Program; FAMILY PHYSICIAN Internal Medicine
DX: R10.9 Unspecified abdominal pain (principal); G89.29 Other chronic pain
CPT/HCPCS: 99284; 96374; 96361; 80053; 83690; 84703; 85025